=== PATIENT | female | born 1985 | race Caucasian/White ===

== ENCOUNTER 2020-07-30 17:37 | Inpatient (IN) ==
--- NOTE | 2020-07-30 18:28 | DR.H&P ---
H&P - History & Physical for Day of: H&P Date: 07/30/20 - Chief Complaint Chief Complaint: CHF, post-operative infection - History of Present Illness History of Present Illness: Patient is a 35-year-old female that is a direct admit from Dr. Fonseca's office. Patient reports that she went to the emergency room yesterday due to bilateral lower extremity edema and joint stiffness. Patient currently receiving vancomycin 2 g daily and Levaquin 750 mg daily via PICC line. Patient underwent an Achilles tendon repair on June 16. Patient subsequently fell and the tendon again tore. Patient developed xanthomonas maltophilia infection. Patient has had a 13 pound weight gain over the past couple of days. Patient was last in CHF in March. Patient had blood work performed which revealed her sedimentation rate was 65 and her CRP was 22. Carmen person does report that the last time she was in CHF it to high doses of Lasix to pour the fluid off. Patient's A1c is noted be 6.9. Blood pressure is noted to be 138/100. Denies chest pain. Does report that she had to sleep sitting up last night. Does complain her right foot pain. Does report that she is scheduled for Monday to go in for another surgery. Does report that Dr. Hood wants to put in a cadaver bone but she has refused. Does report that he is planning to filet open her foot and clean it out. Does state that her potassium was low in the ER. Does report that her d-dimer was elevated. However, venous Dopplers were noted to be negative. Patient will be admitted for further evaluation. - Past Medical History Past Medical History: CHF, Diabetes Additional Medical History: glioma of brainstem - Past Surgical History Additional Surgical History: achilles tendon repair - Review of Systems Constitutional: See HPI Eyes: See HPI ENT: See HPI Respiratory: See HPI Cardiovascular: See HPI Gastrointestinal: See HPI Musculoskeletal: See HPI, Other (soft cast to right leg) Skin: See HPI Neurological: See HPI Oriented: Normal Eyes: Normal Ear: Normal Nose: Normal Throat: Normal Respiratory: Clear Throughout Cardiovascular: Normal : Normal Auscultation: Bowel Sounds: Normal Palpation: Normal Tenderness: Normal Skin: Normal Musculoskeletal: Ankle (right), Foot (right), Swelling (bilateral lower extremities) Psychiatric: Normal Mood Description: Calm Speech Pattern: Clear - Assessment/Plan (1) CHF (congestive heart failure) Status: Acute Plan: IV diuresis (2) Post-operative complication Status: Acute Plan: Continue Vanc and Levaquin
[2020-07-30] MEDS ORDERED: PHARMACY CONSULT - VANCOMYCIN XX SCH (21:34)
--- NOTE | 2020-07-30 21:53 | RAD ---
CHEST, 1 VIEWHistory: ACUTE DYSTOLIC CHFComparison: 05/31/2020Findings: Cardiac silhouette is enlarged without congestive failure. No acute alveolar infiltrate or significant effusion is identified. Right-sided PICC terminates over the cavoatrial junction without pneumothorax.Impression: Cardiomegaly without CHF or additional acute cardiopulmonary abnormality.Electronically signed by: MAR SABA (Jul 30, 2020 21:52:13)
[2020-07-30 22:11] LABS: BASOPHILS # (AUTO) 0.1 X10^3/uL (0.0-0.1); BASOPHILS % (AUTO) 0.8 % (0.2-1.0); EOSINOPHILS % (AUTO) 0.1 % (0.9-2.9); HEMATOCRIT 38.2 % (36.0-47.0); HEMOGLOBIN 12.5 g/dL (12.0-16.0); LYMPHOCYTES # (AUTO) 1.5 X10^3/uL (1.3-2.9); LYMPHOCYTES % (AUTO) 17.3 % (21.0-51.0); MEAN CORPUSCULAR HEMOGLOBIN 29.4 pg (27.0-34.0); MEAN CORPUSCULAR HGB CONC 32.7 g/dL (33.0-35.0); MEAN CORPUSCULAR VOLUME 89.9 fL (80.0-100.0); MEAN PLATELET VOLUME 8.7 fL (7.4-11.0); MONOCYTES # (AUTO) 0.9 x10^3/uL (0.3-0.8); MONOCYTES % (AUTO) 10.5 % (0.0-13.0); NEUTROPHILS # (AUTO) 6.3 x10^3/uL (2.2-4.8); NEUTROPHILS % (AUTO) 71.3 % (42.0-75.0); PLATELET COUNT 263 X10^3/uL (150.0-450.0); RED BLOOD COUNT 4.25 X10^6/uL (3.5-5.4); RED CELL DISTRIBUTION WIDTH 14.1 % (11.6-16.5); WHITE BLOOD COUNT 8.8 X10^3/uL (3.6-10.0)
[2020-07-30 22:28] LABS: BLOOD UREA NITROGEN 11 mg/dL (7-18); CALCIUM 9.8 mg/dL (8.5-10.1); CARBON DIOXIDE 29.8 mmol/L (21-32); CHLORIDE 105 mmol/L (98-107); COR NA(FOR HYPERGLY) 143 mmol/L (136-145); CREATININE 1.22 mg/dL (0.55-1.02); SODIUM 143 mmol/L (136-145); TROPONIN I < 0.02 ng/mL (0-1.5); eGFR NON BLACK RACES 53 (>60)
[2020-07-30 22:30] LABS: ALANINE AMINOTRANSFERASE 34 Units/L (12-78); ALBUMIN 3.2 g/dL (3.4-5.0); ALKALINE PHOSPHATASE 115 Units/L (46-116); ASPARTATE AMINO TRANSFERASE 16 Units/L (15-37); CKMB % 1.3 % (<4); COR CA(FOR HYPOALB) 10.4 mg/dL (8.5-10.1); CREATINE KINASE 78 Units/L (26-192); CREATINE KINASE MB < 1.0 ng/mL (0-4.0); MAGNESIUM 1.7 mg/dL (1.7-2.9); TOTAL PROTEIN 7.8 g/dL (6.4-8.2)
[2020-07-30] MEDS ORDERED: LASIX IVP ONE (22:40)
[2020-07-30] MEDS: LASIX IVP SCH (23:25)
[2020-07-30] MEDS ORDERED: POTASSIUM CHLORIDE LIQ 20 MEQ UDC PO PRN (23:32)
[2020-07-30] MEDS ORDERED: K-DUR TAB 20 MEQ PO PRN (23:32)
[2020-07-30] MEDS ORDERED: MICRO K EXTEN CAP 10 MEQ PO PRN (23:32)
[2020-07-30] MEDS ORDERED: POTASSIUM CHL 40 MEQ/NS 0.45% 500 ML IV PRN (23:32)
[2020-07-30] MEDS ORDERED: KLOR-CON PO PRN (23:32)
[2020-07-30] MEDS ORDERED: K-RIDER 10 MEQ/NS 100 ML 10 MEQ/100 ML BAG IV PRN (23:32)
[2020-07-30] MEDS ORDERED: POTASSIUM CHL 60 MEQ/NS 0.45% 500 ML IV PRN (23:32)
[2020-07-30] MEDS ORDERED: KLOR-CON ONE (23:40)
[2020-07-30] MEDS ORDERED: NS 500 ML IV 500 ML IV ONE (23:41)
[2020-07-30] MEDS ORDERED: MAGNESIUM SULFATE 1 GRAM/100 mL PREMIX 2 G/200 ML BAG IV ONE (23:41)
[2020-07-30] MEDS: MAGNESIUM SULFATE 1 GRAM/100 mL PREMIX 1 GM/100 ML BAG IV PRN (23:45)
[2020-07-31 00:09] LABS: BILIRUBIN,URINE NEGATIVE (NEGATIVE); BLOOD/HEMOGLOBIN,URINE NEGATIVE (NEGATIVE); GLUCOSE, URINE NEGATIVE (NEGATIVE); KETONES,URINE NEGATIVE (NEGATIVE); LEUKOCYTE ESTERASE ,URINE NEGATIVE (NEGATIVE); NITRITES,URINE NEGATIVE (NEGATIVE); PROTEIN,URINE NEGATIVE (NEGATIVE); UROBILINOGEN,URINE NORMAL (NORMAL)
[2020-07-31] MEDS: MAGNESIUM SULFATE 1 GRAM/100 mL PREMIX 1 GM/100 ML BAG IV PRN (00:20)
[2020-07-31 00:28] LABS: APPEARANCE,URINE CLEAR (CLEAR); COLOR,URINE STRAW (YELLOW)
[2020-07-31] MEDS ORDERED: VANCOMYCIN HCL 2 G in NS 500 ML IV 500 ML IV ONE (01:00)
[2020-07-31 01:02] VITALS: BMI 50.1
[2020-07-31] MEDS ORDERED: MORPHINE SULFATE INJ 2 MG INJ ONE (01:18)
[2020-07-31] MEDS: MORPHINE SULFATE INJ 2 MG INJ IVP PRN ×3 (01:20→21:30)
[2020-07-31 03:51] LABS: BASOPHILS # (AUTO) 0.1 X10^3/uL (0.0-0.1); BASOPHILS % (AUTO) 0.6 % (0.2-1.0); HEMATOCRIT 37.1 % (36.0-47.0); HEMOGLOBIN 12.1 g/dL (12.0-16.0); LYMPHOCYTES # (AUTO) 1.1 X10^3/uL (1.3-2.9); LYMPHOCYTES % (AUTO) 13.2 % (21.0-51.0); MEAN CORPUSCULAR HEMOGLOBIN 29.4 pg (27.0-34.0); MEAN CORPUSCULAR HGB CONC 32.6 g/dL (33.0-35.0); MEAN CORPUSCULAR VOLUME 90.1 fL (80.0-100.0); MEAN PLATELET VOLUME 8.4 fL (7.4-11.0); MONOCYTES % (AUTO) 11.8 % (0.0-13.0); NEUTROPHILS # (AUTO) 6.4 x10^3/uL (2.2-4.8); NEUTROPHILS % (AUTO) 74.4 % (42.0-75.0); PLATELET COUNT 259 X10^3/uL (150.0-450.0); RED BLOOD COUNT 4.11 X10^6/uL (3.5-5.4); RED CELL DISTRIBUTION WIDTH 14.3 % (11.6-16.5); WHITE BLOOD COUNT 8.6 X10^3/uL (3.6-10.0)
[2020-07-31 04:10] LABS: ALANINE AMINOTRANSFERASE 30 Units/L (12-78); ALKALINE PHOSPHATASE 110 Units/L (46-116); ASPARTATE AMINO TRANSFERASE 17 Units/L (15-37); BLOOD UREA NITROGEN 11 mg/dL (7-18); CALCIUM 9.2 mg/dL (8.5-10.1); CARBON DIOXIDE 27.5 mmol/L (21-32); CHLORIDE 105 mmol/L (98-107); CHOLESTEROL 114 mg/dL (0-200); CKMB % 1.5 % (<4); COR NA(FOR HYPERGLY) 142 mmol/L (136-145); CREATINE KINASE 65 Units/L (26-192); CREATINE KINASE MB < 1.0 ng/mL (0-4.0); CREATININE 1.29 mg/dL (0.55-1.02); HDL CHOLESTEROL 58 mg/dL (40-60); SODIUM 142 mmol/L (136-145); TOTAL PROTEIN 7.4 g/dL (6.4-8.2); TRIGLYCERIDES 53 mg/dL (0-150); TROPONIN I < 0.02 ng/mL (0-1.5); eGFR NON BLACK RACES 49 (>60)
[2020-07-31] MEDS: LEVAQUIN TAB 750 MG PO SCH (09:55)
[2020-07-31 10:02] LABS: CREATININE 1.34 mg/dL (0.55-1.02); VANCOMYCIN,TROUGH 7.5 ug/mL (15-20)
[2020-07-31] MEDS: LASIX IVP SCH ×2 (10:09→17:37)
[2020-07-31 10:12] LABS: CKMB % 1.8 % (<4); CREATINE KINASE 55 Units/L (26-192); CREATINE KINASE MB < 1.0 ng/mL (0-4.0); TROPONIN I < 0.02 ng/mL (0-1.5)
[2020-07-31] MEDS: VANCOMYCIN HCL 500 MG, VANCOMYCIN HCL 1 G in NS 250 ML IV 250 ML IV SCH ×2 (10:17→21:45)
[2020-07-31] MEDS ORDERED: ZANAFLEX PO PRN (10:25)
[2020-07-31] MEDS ORDERED: VITAMIN D3 125 mcg (5,000 UNITS) PO SCH (11:00)
[2020-07-31] MEDS: FOLIC ACID TAB 1 MG PO SCH (12:03)
[2020-07-31] MEDS: LIPITOR TAB 40 MG PO SCH ×2 (12:04→21:00)
[2020-07-31] MEDS: ABILIFY PO SCH (12:04)
[2020-07-31] MEDS: ALDACTONE TAB 25 MG PO SCH (12:05)
[2020-07-31] MEDS: ASPIRIN EC 81 MG PO SCH (12:06)
[2020-07-31] MEDS: SYNTHROID 50 mcg TAB PO SCH (12:06)
[2020-07-31] MEDS: CARDIZEM CD 120 MG 24-HR PO SCH (12:07)
[2020-07-31] MEDS: GLUCOPHAGE XR 24-HR PO SCH ×2 (12:07→21:00)
[2020-07-31] MEDS: DESVENLAFAXINE 100 MG PO SCH (12:20)
[2020-07-31] MEDS: PriLOSEC PO SCH (21:45)
[2020-08-01 06:10] LABS: BASOPHILS % (AUTO) 0.2 % (0.2-1.0); EOSINOPHILS % (AUTO) 0.1 % (0.9-2.9); HEMOGLOBIN 11.5 g/dL (12.0-16.0); LYMPHOCYTES # (AUTO) 1.4 X10^3/uL (1.3-2.9); LYMPHOCYTES % (AUTO) 17.6 % (21.0-51.0); MEAN CORPUSCULAR HEMOGLOBIN 29.7 pg (27.0-34.0); MEAN CORPUSCULAR HGB CONC 32.9 g/dL (33.0-35.0); MEAN CORPUSCULAR VOLUME 90.4 fL (80.0-100.0); MEAN PLATELET VOLUME 8.6 fL (7.4-11.0); MONOCYTES # (AUTO) 0.8 x10^3/uL (0.3-0.8); NEUTROPHILS # (AUTO) 5.8 x10^3/uL (2.2-4.8); NEUTROPHILS % (AUTO) 72.1 % (42.0-75.0); PLATELET COUNT 268 X10^3/uL (150.0-450.0); RED BLOOD COUNT 3.87 X10^6/uL (3.5-5.4); RED CELL DISTRIBUTION WIDTH 14.6 % (11.6-16.5)
[2020-08-01 06:23] LABS: ALANINE AMINOTRANSFERASE 27 Units/L (12-78); ALBUMIN 2.8 g/dL (3.4-5.0); ALKALINE PHOSPHATASE 99 Units/L (46-116); ASPARTATE AMINO TRANSFERASE 17 Units/L (15-37); BLOOD UREA NITROGEN 10 mg/dL (7-18); CALCIUM 9.1 mg/dL (8.5-10.1); CARBON DIOXIDE 30.5 mmol/L (21-32); CHLORIDE 106 mmol/L (98-107); COR CA(FOR HYPOALB) 10.1 mg/dL (8.5-10.1); CREATININE 1.27 mg/dL (0.55-1.02); SODIUM 142 mmol/L (136-145); TOTAL PROTEIN 6.5 g/dL (6.4-8.2); eGFR NON BLACK RACES 50 (>60)
[2020-08-01] MEDS: ABILIFY PO SCH (08:44)
[2020-08-01] MEDS: ALDACTONE TAB 25 MG PO SCH (08:45)
[2020-08-01] MEDS: VILAZODONE 20 MG PO SCH (08:46)
[2020-08-01] MEDS: DESVENLAFAXINE 100 MG PO SCH (08:46)
[2020-08-01] MEDS: CARDIZEM CD 120 MG 24-HR PO SCH (08:46)
[2020-08-01] MEDS: ASPIRIN EC 81 MG PO SCH (08:46)
[2020-08-01] MEDS: GLUCOPHAGE XR 24-HR PO SCH ×2 (08:48→20:30)
[2020-08-01] MEDS: FOLIC ACID TAB 1 MG PO SCH (08:48)
[2020-08-01] MEDS: MICRO K EXTEN CAP 10 MEQ PO SCH (08:49)
[2020-08-01] MEDS: LEVAQUIN TAB 750 MG PO SCH (08:49)
[2020-08-01] MEDS: PriLOSEC PO SCH ×2 (08:50→21:30)
[2020-08-01] MEDS: SYNTHROID 50 mcg TAB PO SCH (08:50)
[2020-08-01] MEDS: LASIX IVP SCH ×2 (09:08→16:49)
[2020-08-01] MEDS: VANCOMYCIN HCL 500 MG, VANCOMYCIN HCL 1 G in NS 250 ML IV 250 ML IV SCH ×2 (09:08→21:30)
--- NOTE | 2020-08-01 10:21 | RAD ---
HISTORYCHFSTUDYAP [id number]/29/2020FINDINGSContinued mild cardiac enlargement with clear lungs and pleural spac es. There is no evidence for CHF, pneumonia or pleural fluid.IMPRESSIONNo change; no acute findings.E lectronically signed by: FALGUNI ANDRADE (Aug 01, 2020 10:19:51)
[2020-08-01] MEDS ORDERED: ZOFRAN INJ 4 MG VIAL IVP PRN (15:32)
[2020-08-01] MEDS ORDERED: ZOFRAN INJ 4 MG VIAL ONE (15:36)
[2020-08-01] MEDS ORDERED: PHARMACY COMMENT IV NR (20:30)
[2020-08-01] MEDS: LIPITOR TAB 40 MG PO SCH (20:30)
[2020-08-01 20:47] LABS: CREATININE 1.24 mg/dL (0.55-1.02); VANCOMYCIN,TROUGH 18.9 ug/mL (15-20)
[2020-08-01] MEDS: MORPHINE SULFATE INJ 2 MG INJ IVP PRN (21:08)
[2020-08-02] MEDS: MORPHINE SULFATE INJ 2 MG INJ IVP PRN (02:34)
[2020-08-02 05:23] LABS: BASOPHILS % (AUTO) 0.5 % (0.2-1.0); EOSINOPHILS % (AUTO) 0.1 % (0.9-2.9); HEMATOCRIT 35.5 % (36.0-47.0); HEMOGLOBIN 11.6 g/dL (12.0-16.0); LYMPHOCYTES # (AUTO) 1.1 X10^3/uL (1.3-2.9); LYMPHOCYTES % (AUTO) 13.9 % (21.0-51.0); MEAN CORPUSCULAR HEMOGLOBIN 29.3 pg (27.0-34.0); MEAN CORPUSCULAR HGB CONC 32.5 g/dL (33.0-35.0); MEAN CORPUSCULAR VOLUME 90.2 fL (80.0-100.0); MEAN PLATELET VOLUME 8.9 fL (7.4-11.0); MONOCYTES # (AUTO) 0.7 x10^3/uL (0.3-0.8); MONOCYTES % (AUTO) 9.6 % (0.0-13.0); NEUTROPHILS # (AUTO) 5.7 x10^3/uL (2.2-4.8); NEUTROPHILS % (AUTO) 75.9 % (42.0-75.0); PLATELET COUNT 261 X10^3/uL (150.0-450.0); RED BLOOD COUNT 3.94 X10^6/uL (3.5-5.4); RED CELL DISTRIBUTION WIDTH 14.4 % (11.6-16.5); WHITE BLOOD COUNT 7.6 X10^3/uL (3.6-10.0)
[2020-08-02 05:46] LABS: ALANINE AMINOTRANSFERASE 25 Units/L (12-78); ALBUMIN 2.8 g/dL (3.4-5.0); ALKALINE PHOSPHATASE 97 Units/L (46-116); ASPARTATE AMINO TRANSFERASE 15 Units/L (15-37); BLOOD UREA NITROGEN 11 mg/dL (7-18); CALCIUM 9.2 mg/dL (8.5-10.1); CARBON DIOXIDE 27.5 mmol/L (21-32); CHLORIDE 104 mmol/L (98-107); COR CA(FOR HYPOALB) 10.2 mg/dL (8.5-10.1); SODIUM 140 mmol/L (136-145); TOTAL PROTEIN 6.7 g/dL (6.4-8.2); eGFR NON BLACK RACES 54 (>60)
[2020-08-02] MEDS: ABILIFY PO SCH (09:39)
[2020-08-02] MEDS: ASPIRIN EC 81 MG PO SCH (09:44)
[2020-08-02] MEDS: ALDACTONE TAB 25 MG PO SCH (09:44)
[2020-08-02] MEDS: CARDIZEM CD 120 MG 24-HR PO SCH (09:45)
[2020-08-02] MEDS: DESVENLAFAXINE 100 MG PO SCH (09:45)
[2020-08-02] MEDS: FOLIC ACID TAB 1 MG PO SCH (09:45)
[2020-08-02] MEDS: VILAZODONE 20 MG PO SCH (09:46)
[2020-08-02] MEDS: GLUCOPHAGE XR 24-HR PO SCH (09:46)
[2020-08-02] MEDS: PriLOSEC PO SCH (09:47)
[2020-08-02] MEDS: MICRO K EXTEN CAP 10 MEQ PO SCH (09:47)
[2020-08-02] MEDS: LEVAQUIN TAB 750 MG PO SCH (09:47)
[2020-08-02] MEDS: LASIX IVP SCH ×2 (09:47→17:13)
[2020-08-02] MEDS: SYNTHROID 50 mcg TAB PO SCH (09:48)
[2020-08-02] MEDS: VANCOMYCIN HCL 500 MG, VANCOMYCIN HCL 1 G in NS 250 ML IV 250 ML IV SCH (09:49)
[2020-08-02] MEDS ORDERED: MORPHINE 15 MG PO PRN (11:29)
[2020-08-02] MEDS ORDERED: MORPHINE SULFATE INJ 2 MG INJ IVP PRN (11:29)
[2020-08-02] MEDS ORDERED: M.S. CONTIN 15 MG (EXTENDED RELEASE) PO PRN (12:00)
[2020-08-02 16:09] VITALS: BP 119/68
== END 2020-08-02 19:43 | disposition short-term general hospital (02) | DRG 602 ==
LOC: MED/SURG → OBSVTOIN 20:16
PROVIDERS: ADMIT Internal Medicine; ATTEND Internal Medicine

== ENCOUNTER → 2022-06-16 23:59 | Observation (INO) ==
[2022-06-15 21:09] LABS: BASOPHILS # (AUTO) 0.1 X10^3/uL (0.0-0.1); BASOPHILS % (AUTO) 0.7 % (0.2-1.0); EOSINOPHILS # (AUTO) 0.1 x10^3/uL (0.0-0.2); EOSINOPHILS % (AUTO) 0.8 % (0.9-2.9); HEMATOCRIT 44.3 % (36.0-47.0); LYMPHOCYTES # (AUTO) 2.2 X10^3/uL (1.3-2.9); LYMPHOCYTES % (AUTO) 23.9 % (21.0-51.0); MEAN CORPUSCULAR HEMOGLOBIN 33.1 pg (27.0-34.0); MEAN CORPUSCULAR HGB CONC 33.9 g/dL (33.0-35.0); MEAN CORPUSCULAR VOLUME 97.4 fL (80.0-100.0); MEAN PLATELET VOLUME 9.2 fL (7.4-11.0); MONOCYTES # (AUTO) 0.8 x10^3/uL (0.3-0.8); MONOCYTES % (AUTO) 8.6 % (0.0-13.0); RED BLOOD COUNT 4.55 X10^6/uL (3.5-5.4); RED CELL DISTRIBUTION WIDTH 14.2 % (11.6-16.5); WHITE BLOOD COUNT 9.1 X10^3/uL (3.6-10.0)
[2022-06-15 21:17] LABS: ALANINE AMINOTRANSFERASE 31 Units/L (12-78); ALBUMIN 3.5 g/dL (3.4-5.0); ALKALINE PHOSPHATASE 124 Units/L (46-116); ASPARTATE AMINO TRANSFERASE 16 Units/L (15-37); BLOOD UREA NITROGEN 6 mg/dL (7-18); CALCIUM 8.6 mg/dL (8.5-10.1); CARBON DIOXIDE 28.2 mmol/L (21-32); CHLORIDE 103 mmol/L (98-107); COR NA(FOR HYPERGLY) 142 mmol/L (136-145); CREATININE 0.66 mg/dL (0.55-1.02); SODIUM 141 mmol/L (136-145); TOTAL PROTEIN 7.5 g/dL (6.4-8.2); eGFR NON BLACK RACES > 60 (>60)
[2022-06-15 21:26] VITALS: BMI 39.9
[2022-06-15] MEDS: NS 1,000 ML IV 1,000 ML IV SCH (22:11)
[2022-06-15] MEDS: KLOR-CON PO PRN (23:45)
--- NOTE | 2022-06-16 03:07 | RAD ---
PROCEDURE: Chest X-ray 1 View .HISTORY: Chest Pain .TECHNIQUE: AP view .COMPARISON: 08/01/2020.TECHNICAL QUALITY: Satisfactory .FINDINGS:Normal size heart .Mediastinum and hilar regions show no masses or lymphadenopathy .Normal central vascularity .No pulmonary consolidation, masses, pleural fluid, or pneumothorax .No acute bony abnormality .IMPRESSION:No active cardiopulmonary disease .Electronically signed by: Timothy Malik (Jun 16, 2022 03:05:54)
[2022-06-16 08:41] LABS: BASOPHILS % (AUTO) 0.7 % (0.2-1.0); EOSINOPHILS # (AUTO) 0.1 x10^3/uL (0.0-0.2); EOSINOPHILS % (AUTO) 0.9 % (0.9-2.9); HEMATOCRIT 40.5 % (36.0-47.0); HEMOGLOBIN 13.6 g/dL (12.0-16.0); LYMPHOCYTES # (AUTO) 1.6 X10^3/uL (1.3-2.9); MEAN CORPUSCULAR HEMOGLOBIN 32.8 pg (27.0-34.0); MEAN CORPUSCULAR HGB CONC 33.6 g/dL (33.0-35.0); MEAN CORPUSCULAR VOLUME 97.6 fL (80.0-100.0); MEAN PLATELET VOLUME 9.2 fL (7.4-11.0); MONOCYTES # (AUTO) 0.6 x10^3/uL (0.3-0.8); NEUTROPHILS # (AUTO) 4.3 x10^3/uL (2.2-4.8); NEUTROPHILS % (AUTO) 65.4 % (42.0-75.0); RED BLOOD COUNT 4.15 X10^6/uL (3.5-5.4); RED CELL DISTRIBUTION WIDTH 14.5 % (11.6-16.5); WHITE BLOOD COUNT 6.6 X10^3/uL (3.6-10.0)
[2022-06-16 08:50] LABS: ALANINE AMINOTRANSFERASE 25 Units/L (12-78); ALBUMIN 2.9 g/dL (3.4-5.0); ALKALINE PHOSPHATASE 105 Units/L (46-116); ASPARTATE AMINO TRANSFERASE 15 Units/L (15-37); BLOOD UREA NITROGEN 6 mg/dL (7-18); CALCIUM 8.1 mg/dL (8.5-10.1); CARBON DIOXIDE 27.4 mmol/L (21-32); CHLORIDE 105 mmol/L (98-107); COR NA(FOR HYPERGLY) 143 mmol/L (136-145); CREATININE 0.69 mg/dL (0.55-1.02); SODIUM 140 mmol/L (136-145); TOTAL PROTEIN 6.2 g/dL (6.4-8.2); eGFR NON BLACK RACES > 60 (>60)
[2022-06-16] MEDS: KLOR-CON PO PRN (09:43)
[2022-06-16] MEDS: MAGNESIUM SULFATE 1 GRAM/100 mL PREMIX 1 G/100 ML BAG IV PRN ×2 (10:20→11:40)
[2022-06-16] MEDS: PROTONIX INJ 40 MG VIAL IVP SCH ×2 (16:28→20:43)
[2022-06-16] MEDS: PEPCID TAB 40 MG PO SCH ×2 (16:28→20:43)
[2022-06-16] MEDS: CARAFATE ORAL SUSP PO SCH ×2 (16:29→20:43)
[2022-06-16] MEDS: NS 1,000 ML IV 1,000 ML IV SCH (21:42)
[2022-06-16 23:39] VITALS: BP 138/96
[~2022-06-16 23:59] MED LIST: DONNATAL TAB PO PRN; K-DUR TAB 20 MEQ PO PRN; K-RIDER 10 MEQ/NS 100 ML 10 MEQ/100 ML BAG IV PRN; MICRO K EXTEN CAP 10 MEQ PO PRN; NITROSTAT SL PRN; NovoLIN R (or HumuLIN R) SUBCUT PRN; SNACK - Diabetic Appropriate PO SCH; SYNTHROID 75 mcg TAB PO SCH; ZESTRIL TAB 5 MG PO SCH
== END | disposition left against medical advice (07) ==
LOC: MED/SURG
PROVIDERS: ADMIT Internal Medicine; ATTEND Internal Medicine
DX: K21.9 Gastro-esophageal reflux disease without esophagitis; Z53.29 Procedure and treatment not carried out because of patient's decision for other reasons; R07.89 Other chest pain; Z79.899 Other long term (current) drug therapy; I42.8 Other cardiomyopathies; E11.65 Type 2 diabetes mellitus with hyperglycemia; Z87.19 Personal history of other diseases of the digestive system; R94.31 Abnormal electrocardiogram [ECG] [EKG]; I10 Essential (primary) hypertension; K29.00 Acute gastritis without bleeding; Z20.822 Contact with and (suspected) exposure to COVID-19; E03.8 Other specified hypothyroidism